=== PATIENT | female | born 1935 | race Caucasian/White ===

== ENCOUNTER → 2020-03-08 13:32 | Outpatient (CLI) | payer OTHER, SELFPAY | PROVIDERS: Family Provider Internal Medicine; PCP Internal Medicine; Referring Provider Internal Medicine; Visit Provider Internal Medicine | DX: M85.851 Other specified disorders of bone density and structure, right thigh (principal); Z78.0 Asymptomatic menopausal state; Z85.3 Personal history of malignant neoplasm of breast | CPT/HCPCS: 77080 ==

== ENCOUNTER → 2020-04-26 10:26 | Outpatient (CLI) | payer OTHER, SELFPAY ==
--- NOTE | 2020-04-26 | DI.MG.S_ITS ---
BILATERAL DIGITAL SCREENING MAMMOGRAM 3D/2D WITH CAD: 04/26/2020 CLINICAL: Routine screening. Comparison is made to exams dated: 02/04/2019 mammogram, 09/25/2018 mammogram, and 07/30/2017 mammogram - outside location. The tissue of both breasts is predominantly fatty. Current study was also evaluated with a Computer Aided Detection (CAD) system. No significant masses, calcifications, or other findings are seen in either breast. There has been no significant interval change. IMPRESSION: NEGATIVE There is no mammographic evidence of malignancy. A 1 year screening mammogram is recommended. This exam was interpreted at Station ID: [id number]. NOTE: For mammograms, a report in lay terms will be sent to the patient. Approximately 15% of breast malignancies will not be visualized mammographically. In the management of a palpable breast mass, a negative mammogram must not discourage biopsy of a clinically suspicious lesion. Electronically Signed By: Rigo Lugo M.D., jr/fortino:04/26/2020 11:30:06 letter sent: Normal Exam ACR BI-RADS Category 1: Negative 3341F
== END ==
PROVIDERS: Family Provider Internal Medicine; PCP Internal Medicine; Referring Provider Internal Medicine; Visit Provider Internal Medicine
DX: Z12.31 Encounter for screening mammogram for malignant neoplasm of breast (principal)
CPT/HCPCS: 77063; 77067

== ENCOUNTER → 2020-06-28 15:41 | Outpatient (CLI) | payer OTHER, SELFPAY ==
--- NOTE | 2020-06-28 | DI.RAD.S_ITS ---
PROCEDURE: XR LUMBAR SPINE 2-3V INDICATIONS: back pain TECHNIQUE: 3 views of the lumbar spine were acquired. COMPARISON: None. FINDINGS: Bones: No definite fracture although evaluation limited by scoliosis. Severe levoscoliosis and facet arthropathy. Severe narrowing of the T12-L1, L1-L2, L2-L3 disc spaces. Grade 1 retrolisthesis of L2 on L3. Multilevel degenerative endplate sclerosis and spurring. Diffuse facet arthropathy. Soft tissues: Overlying bowel gas pattern is normal. No suspicious soft tissue calcifications. IMPRESSION: Severe levoscoliosis . Multilevel lumbar spondylosis, and facet arthropathy Dictated by: Jeancarlos Silva M.D. on 06/28/2020 at 16:57 Approved by: Jeancarlos Silva M.D. on 06/28/2020 at 16:59
== END ==
PROVIDERS: Family Provider Internal Medicine; PCP Internal Medicine; Referring Provider Internal Medicine; Visit Provider Student in an Organized Health Care Education/Training Program
DX: M54.5 Low back pain (principal); M47.816 Spondylosis without myelopathy or radiculopathy, lumbar region; M41.86 Other forms of scoliosis, lumbar region
CPT/HCPCS: 72100

== ENCOUNTER → 2020-11-03 09:52 | Outpatient (CLI) | payer OTHER, SELFPAY ==
--- NOTE | 2020-11-03 | DI.RAD.S_ITS ---
PROCEDURE: FL UPPER GI SERIES INDICATIONS: lower abdominal pain, unspecified COMPARISON: None. FINDINGS: KUB: Preprocedural [employer] film demonstrates a normal bowel gas pattern. No suspicious abdominal calcifications. Visualized solid organ contours appear normal. Bony structures appear unremarkable. Esophagus: There is normal esophageal peristalsis. No strictures, extrinsic mass effects, or diverticula. No elicited gastroesophageal reflux. No hiatal hernia. Stomach: Stomach is normally distensible, without extrinsic mass effects. Pylorus and duodenal bulb demonstrate normal single-contrast morphology. There is ready transit of contrast through the gastric outlet into the small bowel. IMPRESSION: No evidence of mass or ulceration, normal visualized proximal small bowel. No reflux was observed, esophageal motility is normal. Overall, source of reported episode of epigastric pain is not seen. Dictated by: Asher Meeks M.D. on 11/03/2020 at 12:34 Approved by: Asher Meeks M.D. on 11/03/2020 at 12:35
--- NOTE | 2020-11-03 | DI.US.S_ITS ---
PROCEDURE: US ABDOMEN COMPLETE INDICATIONS: PAIN TECHNIQUE: Real-time scanning was performed of the abdominal and retroperitoneal organs, with image documentation. COMPARISON: None. FINDINGS: Liver: Liver is normal in size and homogeneous in echotexture. Gallbladder: No findings of gallstones or sludge are seen. The gallbladder wall is not thickened, measuring 3 mm or less. No specific pericholecystic fluid is seen. The sonographic Stone sign is negative. Biliary ducts: Intrahepatic bile ducts are non-dilated. Extrahepatic bile duct caliber measures 7 mm. Normal is 6-7 mm or less in diameter, or 10 mm or less post-cholecystectomy. Pancreas: Visualized portions of the pancreas are sonographically normal. Spleen: Spleen is normal in size and homogeneous in echotexture. Kidneys: Kidneys are normal in size and echotexture. Right kidney measures 8 cm long; left kidney measures 9.4 cm long. No hydronephrosis or nephrolithiasis. No solid masses. Aorta: Visualized aorta is normal in caliber at less than 3 cm. Iliacs: Proximal common iliac arteries are normal in caliber at less than 2.5 cm. IVC: Intrahepatic inferior vena cava is patent. Miscellaneous: No free abdominal fluid. IMPRESSION: Normal ultrasound. The gallbladder demonstrates a normal sonographic appearance. No biliary dilatation is seen. No hydronephrosis is seen. Dictated by: Adolfo Zacarias M.D. on 11/03/2020 at 12:11 Approved by: Adolfo Zacarias M.D. on 11/03/2020 at 12:12
== END ==
PROVIDERS: Family Provider Internal Medicine; PCP Internal Medicine; Referring Provider Internal Medicine; Visit Provider Internal Medicine
DX: R10.30 Lower abdominal pain, unspecified (principal)
CPT/HCPCS: 74240; 76700

== ENCOUNTER → 2021-01-15 13:59 | Outpatient (CLI) | payer OTHER, SELFPAY ==
--- NOTE | 2021-01-15 14:07 | DI.RAD.S_ITS ---
PROCEDURE: XR ELBOW RT MIN 3V INDICATIONS: RT ELBOW PAIN TECHNIQUE: 3 views of the elbow were acquired. COMPARISON: None. FINDINGS: Bones: No fractures or dislocations. No suspicious bony lesions. Soft tissues: No elbow joint effusion. No suspicious soft tissue calcifications. IMPRESSION: No trauma found. Dictated by: Asher Meeks M.D. on 01/15/2021 at 14:49 Approved by: Asher Meeks M.D. on 01/15/2021 at 14:49
== END ==
PROVIDERS: Family Provider Internal Medicine; PCP Internal Medicine; Referring Provider Internal Medicine; Visit Provider Internal Medicine
DX: M25.521 Pain in right elbow (principal)
CPT/HCPCS: 73080

== ENCOUNTER 2021-02-09 02:39 | Emergency (ER) | payer OTHER, SELFPAY ==
[2021-02-09 02:42] VITALS: BP 222/98; PULSE 72; RESP 18; TEMP 36.4; O2SAT 99; BMI 26.4
[2021-02-09 03:07] LABS: Add Manual Diff / Slide Review NO; Basophils Absolute Auto 100 /uL (0-100); Basophils Percent Auto 1.3 % (0-2); Eosinophils Absolute Auto 200 /uL (0-450); Hematocrit 37.5 % (36-46); Hemoglobin 12.7 g/dL (12.0-16.0); Lymphocytes Absolute Auto 800 /uL (1100-4500); Lymphocytes Percent Auto 16.2 % (25-40); Mean Corpuscular HGB Conc 33.9 % (30-36); Mean Corpuscular Hemoglobin 32.7 PG (26-34); Mean Corpuscular Volume 96.4 fL (80-100); Monocytes Absolute Auto 500 /uL (0-900); Monocytes Percent Auto 9.3 % (3-14); Neutrophils Absolute Auto 3500 /uL (1500-7000); Neutrophils Percent Auto 69.2 % (50-75); Platelet Count 158 X10^3/uL (150-400); Red Blood Cell Count 3.89 X10^6/uL (4.0-5.2); Red Cell Distribution Width 13.7 % (11.6-14.8); White Blood Cell Count 5.1 X10^3/uL (4.5-11.0)
[2021-02-09 03:10] LABS: Prothrombin Time 11.3 SECONDS (10.1-12.7)
[2021-02-09 03:12] LABS: PTT Partial Thromboplastin Tim 29 SECONDS (26.4-36.2)
[2021-02-09 03:14] LABS: Alanine Aminotransferase 6 IU/L (<35); Albumin 4.2 g/dL (3.5-5.0); Albumin Globulin Ratio 1.4 (1.0-2.8); Alkaline Phosphatase 46 U/L (38-126); Aspartate Aminotransferase 26 IU/L (14-36); BUN Creatinine Ratio 29.3 (6-22); Bilirubin Total 0.6 mg/dL (0.2-1.3); Blood Urea Nitrogen 22 mg/dL (7-17); Calcium 8.4 mg/dL (8.4-10.2); Carbon Dioxide 25 mmol/L (22-32); Chloride 95 mmol/L (98-107); Estimated Glomerular Filt Rate > 60.0 mL/min (>60); Glucose 102 mg/dL (80-110); HEMOLYSIS < 15 (0-50); Lipase 93 U/L (23-300); Potassium 4.1 mmol/L (3.4-5.1); Sodium 134 mmol/L (137-145); Total Protein 7.2 g/dL (6.3-8.2)
--- NOTE | 2021-02-09 03:43 | ED_ITS ---
HPI - Abdominal Pain General Chief Complaint: Abdominal Pain Stated Complaint: pain in left side Time Seen by Provider: 02/09/21 03:15 Source: patient Mode of arrival: Ambulatory Limitations: no limitations History of Present Illness HPI narrative: 85-year-old woman with a history of Parkinson's disease and hyperlipidemia presents with 3 days of left-sided abdominal pain that waxes and wanes. She saw her primary physician yesterday and blood work as well as imaging study and an upper GI were ordered but are not scheduled to be done for almost a week. This evening while lying flat in bed she had recurrent pain in her abdomen severe enough that she could not sleep so she comes in for further evaluation. She notes that she had a normal bowel movement yesterday morning and for the last year to 2 she has noted that she has had increased constipation and larger size stools that take a ?bit of work? to get out. She denies fevers, vomiting, rashes, dyspnea or orthopnea. The pain does not seem to be related to eating or movement. She has been passing gas. Related Data Home Medications Medication Instructions Recorded Confirmed Diphenhydramine Hydrochloride 25 OR #0 10/17/10 (Benadryl) Simvastatin (Zocor) 40 mg PO HS #0 10/17/10 carbidopa-levodopa [Sinemet CR] 1 tab PO BID #0 01/28/17 Previous Rx's Medication Instructions Recorded docusate sodium [Colace] 100 mg PO BID #20 cap 12/28/17 hydrocodone-acetaminophen [Lincoln] 1 tab PO Q4HP PRN #15 tab 12/28/17 Allergies Allergy/AdvReac Type Severity Reaction Status Date / Time cortisone [CORTISONE] Allergy Unknown NAUSEA, Unverified 01/07/18 12:16 PASSED OUT/THINKS IT WAS FROM THE PAIN OF AN INJECTI FLU VACCINE Allergy Unknown TOLD NOT Uncoded 01/07/18 12:16 TO GET THE FLU/PNEUMONIA VACCINE PNEUMOMIA VACCINE Allergy Unknown TOLD NOT Uncoded 01/07/18 12:16 TO GET PNEUMONIA OR FLU VACCINES Review of Systems Review of Systems Narrative: Remainder of complete review of systems is otherwise unremarkable except for that included in the HPI. Patient History Medical History Hyperlipidemia Parkinsons disease Exam Narrative Exam Narrative: General: Healthy appearing, in no acute distress. Able to give a complete and coherent history. Well-nourished well-developed HEENT: Moist mucous membranes, normal sclera with reactive pupils, Neck: No JVD, supple Respiratory: Lungs are clear to auscultation, no wheezing no rales no rhonchi. Full and symmetrical air movement Cardiac: Regular rate and rhythm no murmurs no bruits Abdomen: Soft, nontender at this time, good bowel tones, no flank pain Skin: Warm and dry, no rashes Neurologic: Grossly neurologically intact with no obvious asymmetries or a bnormalities Extremities: No trauma, well perfused Psych: Cooperative, appropriate insight and affect Initial Vital Signs Initial Vital Signs: Vital Signs Temperature 97.5 F L 02/09/21 02:42 Pulse Rate 72 02/09/21 02:42 Respiratory Rate 18 02/09/21 02:42 Blood Pressure 222/98 H 02/09/21 02:42 Pulse Oximetry 99 02/09/21 02:42 Course Orders Ordered: ED Orders 02/09/21 03:00 Complete Blood Count AUTO DIFF Stat Comprehensive Metabolic Panel Stat Lipase Stat Partial Thromboplastin Time Stat Prothrombin Time INR Stat EKG-12 Lead Stat 02/09/21 03:51 CT abdomen pelvis w con Stat Vital Signs Vital signs: Vital Signs - 8 hr 02/09/21 02:42 02/09/21 04:19 02/09/21 04:20 Temperature 97.5 F L Pulse Rate 72 71 71 Respiratory Rate 18 Blood Pressure 222/98 H 222/99 H Pulse Oximetry 99 92 96 02/09/21 04:22 02/09/21 04:23 Temperature Pulse Rate 69 69 Respiratory Rate Blood Pressure 214/96 H 196/88 H Pulse Oximetry 96 96 MDM - Abdominal Pain Medical Records Attestation: I reviewed the patient's medical records. Lab Data Attestation: I reviewed the patient's lab results. Result diagrams: 02/09/21 03:00 02/09/21 03:00 Labs: Lab Results 02/09/21 02/09/21 02/09/21 Range/Units 03:00 03:00 03:00 WBC 5.1 (4.5-11.0) X10^3/uL RBC 3.89 L (4.0-5.2) X10^6/uL Hgb 12.7 (12.0-16.0) g/dL Hct 37.5 (36-46) % MCV 96.4 (80-100) fL MCH 32.7 (26-34) PG MCHC 33.9 (30-36) % RDW 13.7 (11.6-14.8) % Plt Count 158 (150-400) X10^3/uL Neut % (Auto) 69.2 (50-75) % Lymph % (Auto) 16.2 L (25-40) % [place] % (Auto) 9.3 (3-14) % Eos % (Auto) 4.0 (2-4) % Baso % (Auto) 1.3 (0-2) % Neut # (Auto) 3500 (8700-9167) /uL Lymph # (Auto) 800 L (9155-8844) /uL [place] # (Auto) 500 (0-900) /uL Eos # (Auto) 200 (0-450) /uL Baso # (Auto) 100 (0-100) /uL PT 11.3 (10.1-12.7) SECONDS INR 1.0 (0.9-1.3) APTT 29 (26.4-36.2) SECONDS Sodium 134 L (137-145) mmol/L Potassium 4.1 (3.4-5.1) mmol/L Chloride 95 L (98-107) mmol/L Carbon Dioxide 25 (22-32) mmol/L BUN 22 H (7-17) mg/dL Creatinine 0.75 (0.52-1.04) mg/dL Estimated GFR > 60.0 (>60) mL/min BUN/Creatinine Ratio 29.3 H (6-22) Glucose 102 (80-110) mg/dL Calcium 8.4 (8.4-10.2) mg/dL Total Bilirubin 0.6 (0.2-1.3) mg/dL AST 26 (14-36) IU/L ALT 6 (<35) IU/L Alkaline Phosphatase 46 (38-126) U/L Total Protein 7.2 (6.3-8.2) g/dL Albumin 4.2 (3.5-5.0) g/dL Globulin 3.0 (1.7-4.1) g/dL Albumin/Globulin Ratio 1.4 (1.0-2.8) Lipase 93 (23-300) U/L Imaging Data CT scan - abdomen/pelvis: Radiologist's Impression: No evidence of colitis, diverticulitis, bowel obstruction, obstructive uropathy or acute appendicitis. Stefanie Coburn MD [facility] Narrative Medical decision making narrative: 85-year-old woman with recurrent intermittent episodes of left-sided abdominal pain. Lab work is unremarkable, CT scan is reassuring Alesha normal. No evidence of masses, obstruction, diverticulitis, renal abnormalities. Unexplained abdominal pain at this point but no life- threatening findings and no reason for hospitalization. Will have her continue with outpatient follow-up as previously scheduled. Discharge Plan Departure Patient Disposition: Home Clinical Impression: Abdominal pain Qualifiers: Abdominal location: unspecified location Qualified Code(s): R10.9 - Unspecified abdominal pain Instructions: DI for Abdominal Pain-Adult Activity Restrictions/Additional Instructions: Thank you for coming in today At this time, your blood work is very reassuring. There is no sign of electrolyte abnormalities, heart attack or heart attack like syndrome, infection. The CT scan of your abdomen did not show any life-threatening abnorm alities. Specifically there is no masses, tumors, diverticulitis or infection. I have not been able to identify a life-threatening explanation for the pain that you are experiencing. At this point I believe it is safe for you to go home continue with outpatient workup as recommended by your primary care physician. If a CT scan of the abdomen was part of the recommended workup, that was done today and will not need to be repeated. Please schedule follow-up with your primary care physician. If you find that things are worse or changing it would be appropriate to return to the emergency department for further evaluation Prescriptions: No Action Simvastatin (Zocor) 40 mg PO HS Qty: 0 RF: 0 Diphenhydramine Hydrochloride (Benadryl) 25 OR Qty: 0 RF: 0 carbidopa-levodopa [Sinemet CR] 25 MG/100 MG tablet extended release 1 tab PO BID Qty: 0 RF: 0 hydrocodone-acetaminophen [Lincoln] 5 MG/325 MG tablet 1 tab PO Q4HP PRNQty: 15 RF: 0 docusate sodium [Colace] 100 MG capsule 100 mg PO BID Qty: 20 RF: 0 Referrals: Nataliia Garcia MD [Primary Care Provider] -
--- NOTE | 2021-02-09 03:51 | DI.CT.S_ITS ---
PROCEDURE: CT ABDOMEN PELVIS W CON INDICATIONS: Left side abdominal pain for 3 days TECHNIQUE: After the administration of intravenous contrast, 5 mm thick sections acquired from the diaphragm to the symphysis. 5 mm coronal and sagittal reformats were acquired. For radiation dose reduction, the following was used: automated exposure control, adjustment of mA and/or kV according to patient size. COMPARISON: None. FINDINGS: Image quality: Excellent. ABDOMEN: Lung bases: Lung bases are clear. Heart size is normal. There is a fat containing small posterior right diaphragm herniation extending cephalad into the posterior right hemithorax. Solid organs: Liver is normal in size and enhancement. Gallbladder appears normal. Biliary system is non dilated. Pancreas enhances normally. Spleen is normal in size and enhancement. There is a right-sided 1.9 cm adrenal nodule and mild adrenal hyperplasia on the left.. Kidneys demonstrate normal size and enhancement, without hydronephrosis. Peritoneum and bowel: Bowel loops demonstrate normal wall thickness and caliber. No free fluid or air. Nodes and vessels: No retroperitoneal or mesenteric adenopathy by size criteria. Aorta and inferior vena cava are normal in size. Miscellaneous: No ventral hernias. PELVIS: Genitourinary: Bladder wall thickness is normal. Miscellaneous: No inguinal hernias or adenopathy. Bones: No suspicious bony lesions. No vertebral body compression fractures. IMPRESSION: A definite source of reported left-sided abdominal pain is not identified. There is a 1.9 cm right adrenal nodule, and mild left adrenal hyperplasia. MR scanning could be utilized, without contrast, with adrenal nodule protocol to assess for adrenal adenoma as the underlying cause on the right. No specific follow-up of the left adrenal appearance is recommended. Note: These findings are concordant with the preliminary interpretation. Dictated by: Asher Meeks M.D. on 02/09/2021 at 8:45 Approved by: Asher Meeks M.D. on 02/09/2021 at 8:51
[2021-02-09 04:19] VITALS: PULSE 71; O2SAT 92
[2021-02-09 04:20] VITALS: BP 222/99; PULSE 71; O2SAT 96
[2021-02-09 04:22] VITALS: BP 214/96; PULSE 69; O2SAT 96
[2021-02-09 04:23] VITALS: BP 196/88; PULSE 69; O2SAT 96
[2021-02-09 04:30] VITALS: BP 190/89; PULSE 69; RESP 16; O2SAT 98
== END 2021-02-09 05:10 | disposition home or self-care (01) ==
PROVIDERS: Emergency Provider Emergency Medicine; Family Provider Internal Medicine; PCP Internal Medicine
DX: R10.9 Unspecified abdominal pain (principal)
CPT/HCPCS: 36415; 74177; 80053; 83690; 85025; 85610; 85730; 99284; Q9967

== ENCOUNTER → 2021-02-22 19:16 | Outpatient (CLI) | payer OTHER, SELFPAY ==
--- NOTE | 2021-02-22 | DI.MRI.S_ITS ---
PROCEDURE: MR ABDOMEN WO CON INDICATIONS: Benign neoplasm of unspecified adrenal gland TECHNIQUE: Coronal HASTE, axial 2-D FLASH in- and [id number] with subtractions from the hepatic dome to the iliac crests. COMPARISON: [facility], CT, THORAX WITHOUT CONTRAST, 05/23/2014, 13:20. [facility], CT, CT ABDOMEN PELVIS W CON, 02/09/2021, 4:05. FINDINGS: Image quality: Excellent. Adrenal glands: Normal on the left. A 1.9 cm maximal dimension ovoid focal adrenal nodule on the right shows uniform low signal on [id number] gradient T1 imaging open (series 4, image 12) as expected for benign adrenal adenoma. Other solid organs: Liver is normal in overall size. Gallbladder is not well seen. Biliary system is non dilated. Pancreas is normal in morphology. Spleen is normal in size. Both kidneys are normal in size, without hydronephrosis. Note is again made of a chronic small fat containing posterior right diaphragmatic herniation. This was well visualized on prior CT scanning including in April of 2014. Nodes and vessels: No retroperitoneal or mesenteric adenopathy by size criteria. Aorta and inferior vena cava are normal in size. Bowel and peritoneum: Unenhanced bowel loops are normal in caliber. No free fluid. Lung bases: No basal pleural effusions. Heart size is normal. Bones and soft tissues: No ventral hernias. Bone marrow is of normal overall signal. 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 No follow-up recommended. 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 Dictated by: Asher Meeks M.D. on 02/23/2021 at 11:01 Approved by: Asher Meeks M.D. on 02/23/2021 at 11:07
== END ==
PROVIDERS: Family Provider Internal Medicine; PCP Internal Medicine; Referring Provider Internal Medicine; Visit Provider Internal Medicine
DX: D35.01 Benign neoplasm of right adrenal gland (principal); K44.9 Diaphragmatic hernia without obstruction or gangrene
CPT/HCPCS: 74181

== ENCOUNTER → 2021-05-02 10:31 | Outpatient (CLI) | payer OTHER, SELFPAY ==
--- NOTE | 2021-05-02 | DI.MG.S_ITS ---
BILATERAL DIGITAL SCREENING MAMMOGRAM 3D/2D WITH CAD POST LUMPECTOMY: 05/02/2021 CLINICAL: Routine screening. Breast cancer. Comparison is made to exams dated: 04/26/2020 mammogram - [facility], 02/04/2019 mammogram, and 09/25/2018 mammogram - outside location. The tissue of both breasts is heterogeneously dense. This may lower the sensitivity of mammography. Current study was also evaluated with a Computer Aided Detection (CAD) system. There are calcifications in both breasts. There also are post operative findings in the right breast. No significant masses, calcifications, or other findings are seen in either breast. There has been no significant interval change. IMPRESSION: BENIGN There is no mammographic evidence of malignancy. A 1 year screening mammogram is recommended. This exam was interpreted at Station ID: [id number]. NOTE: For mammograms, a report in lay terms will be sent to the patient. Approximately 15% of breast malignancies will not be visualized mammographically. In the management of a palpable breast mass, a negative mammogram must not discourage biopsy of a clinically suspicious lesion. Electronically Signed By: Jovanny Crespo M.D. aty/:05/02/2021 11:45:39 letter sent: Normal Exam ACR BI-RADS Category 2: Benign Finding(s) 3342F
== END ==
PROVIDERS: Family Provider Internal Medicine; PCP Internal Medicine; Referring Provider Internal Medicine; Visit Provider Internal Medicine
DX: Z12.31 Encounter for screening mammogram for malignant neoplasm of breast (principal); Z85.3 Personal history of malignant neoplasm of breast
CPT/HCPCS: 77063; 77067

== ENCOUNTER → 2021-08-21 13:33 | Outpatient (CLI) | payer OTHER, SELFPAY ==
--- NOTE | 2021-08-21 13:35 | DI.MRI.S_ITS ---
PROCEDURE: MR PELVIS WO CON INDICATIONS: RIGHT ISCHIAL PAIN, INTRACTABLE TECHNIQUE: Noncontrast coronal and axial T1 spin echo and STIR through the bony pelvis. COMPARISON: [facility] [place], CR, XR PELVIS WITH LATERAL HIP RIGHT, 08/02/2021, 14:29. FINDINGS: Image quality: Excellent. Bones: Bone marrow of the pelvic ring, sacrum, and proximal femurs show normal signal throughout. No intraosseous lesions or fractures identified. Lower lumbar spondylosis and facet disease. Mild bilateral hip joint degeneration. Tendons: There is mild bilateral insertional gluteus medius and minimus tendinopathy with adjacent soft tissue edema. The nearby proximal iliotibial band appears intact. The iliopsoas tendon appears intact, without adjacent bursal fluid collections or evidence for impingement syndrome. On the right, there is partial tear of the right hamstring origin with associated edema T2 hyperintensity. There is similar appearance to the left hamstring origin to a lesser extent. The straight and reflected heads of the rectus femoris muscle origin appear intact, as well as the conjoint tendon. Soft tissues: Visualized muscles demonstrate normal bulk and internal signal. No joint effusions. No free pelvic fluid. Bladder wall thickness is normal. Genitourinary structures and bowel loops appear normal where visualized. There is a possible right paralabral cyst measuring approximately 1 cm. This could be further assess for labral tear with dedicated hip arthrography. IMPRESSION: Partial tear at the right hamstring origin with associated soft tissue edema. There are similar changes seen at the left hamstring origin to a lesser extent. Please correlate to clinical exam findings as this appearance is technically age indeterminate. Mild bilateral insertional hip adductor tendinopathy. No evidence of fracture. Prominent paralabral cyst adjacent to the right acetabulum. This could reflect right labral tear which could be better assessed with dedicated MR arthrography as clinically necessary. Dictated by: Jeancarlos Silva M.D. on 08/21/2021 at 16:51 Approved by: Jeancarlos Silva M.D. on 08/21/2021 at 17:24
== END ==
PROVIDERS: Family Provider Internal Medicine; PCP Internal Medicine; Referring Provider Orthopaedic Surgery Foot and Ankle Surgery; Visit Provider Orthopaedic Surgery Foot and Ankle Surgery
DX: M24.851 Other specific joint derangements of right hip, not elsewhere classified (principal); S76.811A Strain of other specified muscles, fascia and tendons at thigh level, right thigh, initial encounter; M25.551 Pain in right hip
CPT/HCPCS: 72195

== ENCOUNTER → 2022-07-12 13:25 | Outpatient (CLI) | payer OTHER, SELFPAY ==
--- NOTE | 2022-07-12 | DI.MG.S_ITS ---
BILATERAL DIGITAL SCREENING MAMMOGRAM 3D/2D WITH CAD: 07/12/2022 CLINICAL: Routine screening. Personal history of right breast cancer. Comparison is made to exams dated: 05/02/2021 mammogram, 04/26/2020 mammogram - [facility], and 02/04/2019 mammogram - outside location. Both breasts are heterogeneously dense, which may obscure small masses (category c / 51-75% glandular tissue). Current study was also evaluated with a Computer Aided Detection (CAD) system. There are benign vascular calcifications in both breasts. There also are benign post operative findings in the right breast. No significant masses, calcifications, or other findings are seen in either breast. There has been no significant interval change. IMPRESSION: BENIGN There is no mammographic evidence of malignancy. A 1 year screening mammogram is recommended. This exam was interpreted at Station ID: [id number]. NOTE: For mammograms, a report in lay terms will be sent to the patient. Approximately 15% of breast malignancies will not be visualized mammographically. In the management of a palpable breast mass, a negative mammogram must not discourage biopsy of a clinically suspicious lesion. Electronically Signed By: Lorena bray/fortino:07/12/2022 16:49:57 letter sent: Normal Exam ACR BI-RADS Category 2: Benign Finding(s) 3342F
== END ==
PROVIDERS: Family Provider Internal Medicine; PCP Internal Medicine; Referring Provider Internal Medicine; Visit Provider Internal Medicine
DX: Z12.31 Encounter for screening mammogram for malignant neoplasm of breast (principal); Z85.3 Personal history of malignant neoplasm of breast
CPT/HCPCS: 77063; 77067

== ENCOUNTER 2022-10-06 07:53 | Emergency (ER) | payer OTHER, SELFPAY ==
[2022-10-06] VITALS (8 sets, daily range): BP systolic 182–210; BP diastolic 70–95; PULSE 67–78; RESP 17–20; TEMP 36.5; O2SAT 69–98; BMI 25.7
--- NOTE | 2022-10-06 08:26 | DI.CT.S_ITS ---
PROCEDURE: CT CHEST ABD PEL W CON INDICATIONS: fall, L flank/post rib pain with near syncope on standing, TECHNIQUE: After the administration of intravenous contrast, 5 mm thick sections acquired from the lung apices to the symphysis. 2.5 mm thick coronal and sagittal reformats were acquired. Additional 7 mm thick coronal maximum intensity projection (MIP) reformats acquired through the lungs. For radiation dose reduction, the following was used: automated exposure control, adjustment of mA and/or kV according to patient size. COMPARISON: None. FINDINGS: Chest: Cardiovascular: Heart size is enlarged. Dense calcification associated with the aortic valve noted. Ascending thoracic aorta measures 4.4 cm in diameter. Atherosclerotic vascular calcification Lungs and pleural spaces: Left basilar interstitial atelectasis and infiltrate noted. Small calcified granulomas. Lymph nodes: No mediastinal, hilar or axillary adenopathy. Mediastinum: Unremarkable. No hiatal hernia. Thyroid within normal limits. Chest Wall and Bones: Old healed rib fractures noted involving the anterior left 3rd and 4th ribs. There is a fracture through the posterior 12th rib on the left, uncertain age no surrounding edema. Large posterior osteophyte or calcified ligament at T6-7 results in severe central stenosis. Multiple surgical clips noted in the right axilla. Soft tissue calcification associated with the tip of the left scapula noted. Convex left thoracolumbar scoliosis with degenerative changes present. Bilateral glenohumeral degenerative osteoarthritis Abdomen and Pelvis: Liver: Normal in size and attenuation. No contour deformity present. Biliary system: No calcified cholelithiasis or pericholecystic inflammation. No intra or extrahepatic bile duct dilatation. Pancreas: Unremarkable without mass or inflammation evident. Spleen: Normal in size and density. Adrenals: Bilateral adrenal hypertrophy noted Reproductive system: Unremarkable as visualized. Urinary system: Normal renal size and attenuation. No renal calculi, hydronephrosis, or solid mass present. Urinary bladder unremarkable. Gastrointestinal system: The bowel is unremarkable with no evidence of bowel obstruction or inflammation. The stomach appears unremarkable. Appendix: No findings to suggest acute appendicitis. Lymph nodes: No mesenteric or retroperitoneal adenopathy. Peritoneal spaces: No free air. No free fluid. Vasculature: Aortic atherosclerotic vascular calcification noted without evidence of aneurysm. Abdominal wall: Abdominal wall intact without evidence of ventral or inguinal hernias. Musculoskeletal: Normal bone mineralization. Degenerative disc disease and arthropathy noted in lower lumbar spine. No acute fractures. IMPRESSION: 1. Old healed anterior left 3rd and 4th rib fractures. Posterior left 12th rib fracture, uncertain age. No evidence of pneumothorax. 2. Multilevel degenerative disc disease and arthropathy throughout the thoracolumbar spine associated with levoscoliosis. 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 3. Cardiomegaly, aortic atherosclerotic calcification, and ascending thoracic aortic aneurysm measures 4.4 cm. Approved by: Ashu Barajas M.D. on 10/06/2022 at 10:00
--- NOTE | 2022-10-06 08:26 | DI.CT.S_ITS ---
PROCEDURE: CT CERVICAL SPINE WO CON INDICATIONS: fall TECHNIQUE: Noncontrast 3 mm thick sections acquired from the skull base to the T4 level. Sagittal and coronal reformats were then constructed. For radiation dose reduction, the following was used: automated exposure control, adjustment of mA and/or kV according to patient size. COMPARISON: None. FINDINGS: Image quality: Excellent. Bones: Disc space narrowing noted in the lower lumbar spine. Hypertrophic facet joints present throughout the exam resulting in grade 1 anterior spondylolisthesis at C 4 5, C5-6 T1-2 and T2-3. Vertebral body heights are preserved. Craniovertebral relationships normal. No fracture. Soft tissues: Prevertebral soft tissues are normal in thickness. No paravertebral hematomas. No apical pneumothoraces. IMPRESSION: Multilevel degenerative disc disease and arthropathy without evidence of fracture or traumatic malalignment Approved by: Ashu Barajas M.D. on 10/06/2022 at 9:46
--- NOTE | 2022-10-06 08:26 | DI.RAD.S_ITS ---
PROCEDURE: XR KNEE LT 3V INDICATIONS: fell, knee gave out TECHNIQUE: 3 views of the knee were acquired. COMPARISON: None. FINDINGS: Bones: No fractures or dislocations. No suspicious bony lesions. Medial compartment joint space narrowing Soft tissues: No joint effusion. Atherosclerotic vascular calcification IMPRESSION: Degenerative osteoarthritis. No fracture Approved by: Ashu Barajas M.D. on 10/06/2022 at 10:28
--- NOTE | 2022-10-06 08:26 | DI.CT.S_ITS ---
PROCEDURE: CT ANGIO HEAD AND NECK INDICATIONS: left leg gave out, fall, hit head TECHNIQUE: Pre-contrast 4.5 mm thick sections acquired from the foramen magnum to the vertex. After the administration of intravenous contrast, 1 mm thick sections acquired from the aortic arch through the [place] of [place]. Post-contrast 4.5 mm thick sections then re-acquired from the foramen magnum to the vertex. MIP reformats of the arterial vasculature were utilized. For radiation dose reduction, the following was used: automated exposure control, adjustment of mA and/or kV according to patient size. COMPARISON: None. FINDINGS: Image quality: Excellent. BRAIN: CSF spaces: Ventricles are normal in size and shape. Basal cisterns are patent. No extra-axial fluid collections. Brain: No midline shift. No intracranial bleeds or masses. [place]-white matter interface appears intact. Moderate atrophy and confluent white matter chronic ischemic change present. Skull and face: Calvarium and facial bones appear intact, without suspicious lesions. Orbits appear normal. Bilateral intraocular lens replacements noted. Sinuses: Sinuses and mastoids are clear. HEAD CT ANGIOGRAPHY: Anterior circulation: Atherosclerotic calcification present in the cavernous portions of both internal carotid arteries without significant stenosis. The flow within the paired anterior cerebral arteries is normal and symmetric. The flow within the middle cerebral arteries is normal and symmetric. The anterior communicating artery is seen. No aneurysms are seen. Posterior circulation: Left vertebral artery dominance. Diminutive right vertebral artery terminates in the posterior inferior cerebellar artery. 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 The P2 segment is supplied by a widely patent posterior communicating artery. Remainder of the distal vasculature unremarkable. No aneurysms are seen. NECK CT ANGIOGRAPHY: Carotid system: The great vessels demonstrate a conventional anatomy as they arise from the aortic arch. The origins of the common carotid arteries appear patent. The common carotid arteries demonstrate normal caliber and courses. The bifurcation regions are both widely patent. The internal carotid arteries demonstrate normal calibers and courses. Posterior circulation: The origins of the vertebral arteries both appear widely patent. The more superior extracranial portions of both vertebral arteries also demonstrate normal courses and calibers. They join to form a normal appearing basilar artery. Soft tissues: Visualized neck soft tissues demonstrate no suspicious abnormalities. Bones: No suspicious bony lesions. Visualized cervical spine appears normally aligned. IMPRESSION: 1. Mild atherosclerotic calcification without evidence of large vessel occlusion, significant stenosis, or aneurysm in the head neck. 2. Moderate atrophy and confluent white matter chronic ischemic change. No intracranial hemorrhage or mass effect. Any quantitative measurements of stenosis were performed using NASCET criteria. Approved by: Ashu Barajas M.D. on 10/06/2022 at 9:41
[2022-10-06 08:35] LABS: Add Manual Diff / Slide Review NO; Basophils Absolute Auto 100 /uL (0-100); Basophils Percent Auto 1.1 % (0-2); Eosinophils Absolute Auto 100 /uL (0-450); Eosinophils Percent Auto 1.1 % (2-4); Hematocrit 41.3 % (36-46); Hemoglobin 13.7 g/dL (12.0-16.0); Lymphocytes Absolute Auto 600 /uL (1100-4500); Lymphocytes Percent Auto 10.4 % (25-40); Mean Corpuscular HGB Conc 33.1 % (30-36); Mean Corpuscular Hemoglobin 32.2 PG (26-34); Mean Corpuscular Volume 97.3 fL (80-100); Monocytes Absolute Auto 500 /uL (0-900); Monocytes Percent Auto 8.9 % (3-14); Neutrophils Absolute Auto 4600 /uL (1500-7000); Neutrophils Percent Auto 78.5 % (50-75); Platelet Count 194 X10^3/uL (150-400); Red Blood Cell Count 4.24 X10^6/uL (4.0-5.2); Red Cell Distribution Width 13.5 % (11.6-14.8); White Blood Cell Count 5.8 X10^3/uL (4.5-11.0)
[2022-10-06 08:41] LABS: Alanine Aminotransferase 19 IU/L (<35); Albumin 4.4 g/dL (3.5-5.0); Albumin Globulin Ratio 1.2 (1.0-2.8); Alkaline Phosphatase 65 U/L (38-126); Aspartate Aminotransferase 26 IU/L (14-36); BUN Creatinine Ratio 22.6 (6-22); Blood Urea Nitrogen 19 mg/dL (7-17); Calcium 9.3 mg/dL (8.4-10.2); Carbon Dioxide 28 mmol/L (22-32); Chloride 98 mmol/L (98-107); Estimated Glomerular Filt Rate > 60 mL/min (>60); Globulin 3.7 g/dL (1.7-4.1); Glucose 112 mg/dL (80-110); HEMOLYSIS < 15 (0-50); Magnesium 1.8 mg/dL (1.6-2.3); Potassium 3.7 mmol/L (3.4-5.1); Sodium 133 mmol/L (137-145); Total Protein 8.1 g/dL (6.3-8.2)
[2022-10-06 08:53] LABS: Troponin I < 0.012 ng/mL (0.01-0.034)
--- NOTE | 2022-10-06 09:47 | ED_ITS ---
HPI - Fall General Chief Complaint: Fall Stated Complaint: fall yesterday, pain Time Seen by Provider: 10/06/22 07:55 Source: patient, family and EMS Mode of arrival: EMS History of Present Illness HPI Narrative: 87-year-old woman who lives independently across the [address] from her daughter had a fall yesterday where she landed on her left posterior ribs states that she did hit her head and attributes the fall to her left leg simply giving out and her knee going to the side she convinced her daughter that she did not need additional medical care yesterday but this morning woke up with severe left posterior rib and flank pain with significant nausea near syncope when standing. Related Data Home Medications Medication Instructions Recorded Confirmed Diphenhydramine Hydrochloride 25 OR ##0 10/17/10 (Benadryl) Simvastatin (Zocor) 40 mg PO HS ##0 10/17/10 carbidopa ER 25 mg-levodopa 100 mg 1 tab PO BID ##0 01/28/17 tablet,extended release (Sinemet CR) Previous Rx's Medication Instructions Recorded docusate sodium 100 mg capsule 100 mg PO BID #20 caps 12/28/17 (Colace) hydrocodone 5 mg-acetaminophen 325 1 tab PO Q4HP PRN #15 tabs 12/28/17 mg tablet ([place]) oxycodone-acetaminophen 5 mg-325 0.5 - 1 tab PO Q6H PRN pain #10 10/06/22 mg tablet tabs Allergies Allergy/AdvReac Type Severity Reaction Status Date / Time cortisone [CORTISONE] Allergy Unknown NAUSEA, Unverified 01/07/18 12:16 PASSED OUT/THINKS IT WAS FROM THE PAIN OF AN INJECTI Influenza Virus Vaccines Allergy Unknown TOLD NOT Verified 10/06/22 10:36 TO GET THE FLU/PNEUMONIA VACCINE pneumococcal vaccine Allergy Unknown TOLD NOT Verified 10/06/22 10:36 TO GET THE FLU/PNEUMONIA VACCINE Patient History Medical History Hyperlipidemia Parkinsons disease Social History Smoking Status: Never smoker Smoking Status: Never smoker alcohol intake frequency: 0-2 drinks per day Alcohol type: wine Substance Use Type: does not use Exam Initial Vital Signs Initial Vital Signs: Vital Signs Pulse Rate 72 10/06/22 08:10 Blood Pressure 210/95 H 10/06/22 08:10 Pulse Oximetry 94 10/06/22 08:10 General: Healthy appearing, in mild distress. Able to give a complete and coherent history. Well-nourished well-developed HEENT: Moist mucous membranes, normal sclera with reactive pupils, head is atraumatic Neck: Mild upper cervical spine tenderness with mild tenderness at the right occipital insertion site, Respiratory: Lungs are clear to auscultation, no wheezing no rales no rhonchi. Full and symmetrical air movement Chest: She is able to sit up with minimal pain, no bruising over the chest wall. She does have erythema id agne over the left chest wall from chronic heating pad use. No point tenderness over posterior ribs, thoracic spine or iliac crest. Cardiac: Regular rate and rhythm 4/6 systolic ejection murmur Abdomen: Soft, nontender, no bruising, good bowel tones, no reproducible flank pain Skin: Warm and dry, bruise over the posterior left humerus. Neurologic: Grossly neurologically intact with no obvious asymmetries or ab normalities. NH = 0 Extremities: No trauma, well perfused. No tenderness with internal external r otation at the left hip. Left knee with minor effusion but no specific tenderness to palpation and ligaments are stable on exam Psych: Cooperative, appropriate insight and affect Procedures Orthopedic Splinting/Casting L knee immobilizer: Time of procedure: 11:42 Side: left Lower Extremity Injury Location: knee Lower Extremity Immobilizer: knee immobilizer Post splinting neuro exam: intact Post splinting vascular exam: intact Placed by: Nursing Course Orders Ordered: ED Orders 10/06/22 08:18 Complete Blood Count AUTO DIFF Stat Comprehensive Metabolic Panel Stat Magnesium Stat Troponin I Stat 10/06/22 08:26 CT angio head and neck Stat CT cervical spine wo con Stat CT chest abd pel w con Stat XR knee LT 3V Stat 10/06/22 08:27 Urinalysis and Microscopic Stat 10/06/22 08:33 EKG-12 Lead Stat Hydromorphone HCl (Hydromorphone 0.5 Mg Inj) 0.5 mg IV Q15MIN PRN PRN Reason: Pain, Vital Signs Vital signs: Vital Signs - 8 hr 10/06/22 08:26 10/06/22 08:10 10/06/22 08:10 Temperature 97.7 F Pulse Rate 69 72 Respiratory Rate 18 Blood Pressure 183/70 H 210/95 H Pulse Oximetry 69 L 94 Oxygen Delivery Method Room Air 10/06/22 08:21 10/06/22 08:21 10/06/22 08:30 Temperature Pulse Rate 72 Respiratory Rate Blood Pressure 183/70 H 182/81 H Pulse Oximetry 97 Oxygen Delivery Method 10/06/22 08:30 10/06/22 08:45 10/06/22 08:45 Temperature Pulse Rate 69 67 Respiratory Rate Blood Pressure 189/86 H Pulse Oximetry 96 96 Oxygen Delivery Method 10/06/22 09:00 10/06/22 09:00 10/06/22 09:30 Temperature Pulse Rate 69 70 Respiratory Rate 20 Blood Pressure 183/78 H Pulse Oximetry 97 Oxygen Delivery Method MDM - Fall Lab Data Result diagrams: 10/06/22 08:18 10/06/22 08:18 Labs: Lab Results 10/06/22 10/06/22 10/06/22 Range/Units 08:18 08:18 08:18 WBC 5.8 (4.5-11.0) X10^3/uL RBC 4.24 (4.0-5.2) X10^6/uL Hgb 13.7 (12.0-16.0) g/dL Hct 41.3 (36-46) % MCV 97.3 (80-100) fL MCH 32.2 (26-34) PG MCHC 33.1 (30-36) % RDW 13.5 (11.6-14.8) % Plt Count 194 (150-400) X10^3/uL Neut % (Auto) 78.5 H (50-75) % Lymph % (Auto) 10.4 L (25-40) % [place] % (Auto) 8.9 (3-14) % Eos % (Auto) 1.1 L (2-4) % Baso % (Auto) 1.1 (0-2) % Neut # (Auto) 4600 (0460-3697) /uL Lymph # (Auto) 600 L (2474-5403) /uL [place] # (Auto) 500 (0-900) /uL Eos # (Auto) 100 (0-450) /uL Baso # (Auto) 100 (0-100) /uL Sodium 133 L (137-145) mmol/L Potassium 3.7 (3.4-5.1) mmol/L Chloride 98 (98-107) mmol/L Carbon Dioxide 28 (22-32) mmol/L BUN 19 H (7-17) mg/dL Creatinine 0.84 (0.52-1.04) mg/dL Estimated GFR > 60 (>60) mL/min BUN/Creatinine Ratio 22.6 H (6-22) Glucose 112 H (80-110) mg/dL Calcium 9.3 (8.4-10.2) mg/dL Magnesium 1.8 (1.6-2.3) mg/dL Total Bilirubin 1.0 (0.2-1.3) mg/dL AST 26 (14-36) IU/L ALT 19 (<35) IU/L Alkaline Phosphatase 65 (38-126) U/L Troponin I < 0.012 (0.01-0.034) ng/mL Total Protein 8.1 (6.3-8.2) g/dL Albumin 4.4 (3.5-5.0) g/dL Globulin 3.7 (1.7-4.1) g/dL Albumin/Globulin Ratio 1.2 (1.0-2.8) ECG Data Interpretation: Sinus rhythm at a rate of 66 Poor R-wave progression No acute ischemic changes Normal intervals and normal axis MDM Narrative Medical decision making narrative: [facility] CC: Fall yesterday, left knee ?going out?, near-syncope when standing up increased left flank pain Complicating co-morbidities: Parkinson's disease, gait instability Corroborating data: Data collected from: patient, daughter Outside medical records are not available Differential considered: Mechanical fall, stroke, intracranial bleeding, rib pain, thoracic fracture, splenic injury with internal bleeding, retroperitoneal bleeding/bruising, ligamentous knee injury, Exam documented above, pertinent findings include: Absence of significant point tenderness on bony points of describe pain Lab Test results independently reviewed as above. Pertinent findings: CBC is unremarkable, chemistries show no dramatic abnormalities. Troponin is unremar kable. Independently reviewed EKG as above. Imaging studies independently reviewed: CT cervical spine shows no acute fractures. CT angiogram of the head and neck shows no acute intracranial hemorr kathi or obvious infarct and mild atherosclerosis through the vessels with no large vessel occlusion or significant stenosis. Knee x-ray shows degenerative arthritis and no fractures. CT of the chest abdomen pelvis shows old left 3rd and 4th rib fractures and a 12th rib fracture that likely is the cause of her pain. There is no hemopneumothorax. No splenic abnormalities, no retroperitoneal abnormalities and no bleeding identified. Incidentally appreciated ascending thoracic aneurysm at 4.4 cm. Treatments: Pain medication, placement of knee immobilizer patient has walker available at home Re-evaluations:1135 all findings reviewed with patient and her daughter. Did inform her of the incidental ascending thoracic aneurysm that was appreciated. Discussion: No evidence of stroke, infection, bleeding, intra-abdominal abnormality. Left posterior rib fracture with no complications appreciated. Pain is better controlled. Knee immobilizer is placed. She has walker available at home. Needs orthopedic follow-up and will give her brief course of pain medications along with instructions on constipation. Diagnosis: 87-year-old woman with what appears to be a mechanical fall yest erday, left 12th rib fracture with pain significant enough that she was near syncopal this morning. No evidence of intra-abdominal injuries or bleeding. Knee pain with knee instability. Disposition: see below, along with detailed discharge instructions that have been reviewed with patient as well as indications for ED re-evaluation and additional outpatient follow up Discharge Plan Departure Patient Disposition: Home Clinical Impression: Parkinson disease Fall Qualifiers: Encounter type: initial encounter Qualified Code(s): W19.XXXA - Unspecified fall, initial encounter Knee instability Qualifiers: Laterality: left Qualified Code(s): M25.362 - Other instability, left knee Closed rib fracture Qualifiers: Encounter type: initial encounter Rib fracture type: single rib Laterality: left Qualified Code(s): S22.32XA - Fracture of one rib, left side, initial encounter for closed fracture Instructions: DI for Rib Fracture Activity Restrictions/Additional Instructions: Thank you for coming in today You do have a 12th rib fracture on the left side. This will improve. It is important to make sure that you are taking deep breaths and moving. Using 400 mg of ibuprofen (2 pmru-jpo-qovrdic pills) and 1 Tylenol every 6 hours can be very helpful in controlling pain. For severe pain you can use half to 1 Percocet with to ibuprofen. Regarding your knee instability, there are no fractures however with the knee unstable enough that it caused fall, I have given you a needle immobilizer. I would recommend that you call [facility] at [phone] to schedule a follow-up appointment regarding your left knee I did not find any evidence for stroke, infection, intra-abdominal bleeding or other injuries to explain your fall yesterday. Incidentally noted on your CT scan was a 4.4 cm aneurysm of your aorta just as it comes out from your heart. Given that you are already having regularly scheduled echocardiogram for your heart murmur, I am fairly sure your cardio logist is aware of this but I would encourage you to discuss it with him If you find that you are getting worse or develop any new symptoms, please feel free to return to the emergency department for further evaluation. Prescriptions: New oxycodone-acetaminophen 5-325 mg tablet 0.5 - 1 tab PO Q6H PRN (Reason: pain) Qty: 10 0RF No Action Simvastatin (Zocor) 40 mg PO HS Qty: 0 Diphenhydramine Hydrochloride (Benadryl) 25 OR Qty: 0 carbidopa-levodopa [Sinemet CR] 25 MG/100 MG tablet extended release 1 tab PO BID Qty: 0 hydrocodone-acetaminophen [[place]] 5 MG/325 MG tablet 1 tab PO Q4HP PRNQty: 15 0RF docusate sodium [Colace] 100 MG capsule 100 mg PO BID Qty: 20 0RF Referrals: Nataliia Garcia MD [Primary Care Provider] - Stand Alone Forms: Patient Portal/API
== END 2022-10-06 11:55 | disposition home or self-care (01) ==
PROVIDERS: Emergency Provider Emergency Medicine; Family Provider Internal Medicine; PCP Internal Medicine
DX: S22.32XA Fracture of one rib, left side, initial encounter for closed fracture (principal); M25.362 Other instability, left knee; W18.30XA Fall on same level, unspecified, initial encounter; G20 Parkinson's disease
CPT/HCPCS: 36415; 70496; 70498; 71260; 72125; 73562; 74177; 80053; 81003; 83735; 84484; 85025; 93005; 93010; 99283; 99284; Q9967

== ENCOUNTER 2023-07-15 14:49 | Emergency (ER) | payer OTHER, SELFPAY ==
[2023-07-15 15:15] VITALS: BP 142/67; PULSE 82; RESP 18; TEMP 36.8; O2SAT 99; BMI 23.0
--- NOTE | 2023-07-15 15:21 | DI.RAD.S_ITS ---
PROCEDURE: XR ANKLE RT MIN 3V INDICATIONS: Right ankle swelling and pain. TECHNIQUE: 3 views of the ankle were acquired. COMPARISON: None. FINDINGS: Bones: Moderate diffuse osteopenia which limits evaluation. No definite fractures. Normal alignment. Plantar calcaneal enthesophyte. Degenerative changes of the tibiotalar joint. Ankle mortise is normally aligned. No suspicious bony lesions. Soft tissues: No tibiotalar joint effusion. Achilles tendon appears normal. Moderate lateral malleolar soft tissue edema. IMPRESSION: Moderate lateral malleolar soft tissue edema without definite underlying fracture. Normal alignment. Moderate osteopenia. If there is persistent clinical concern for occult fracture given adequate mechanism of injury, consider repeat imaging in 10-14 days. Dictated by: Jovanny Crespo M.D. on 07/15/2023 at 16:13 Approved by: Jovanny Crespo M.D. on 07/15/2023 at 16:15
[2023-07-15 17:23] VITALS: BP 179/80; PULSE 78; RESP 20; TEMP 36.6; O2SAT 98
--- NOTE | 2023-07-15 17:23 | ED_ITS ---
HPI - Extremity Injury (Lower) <Lauren Arriola PA-C - Last Filed: 07/15/23 17:35> General Chief Complaint: Extremity Injury, Lower Stated Complaint: rt ankle injury Time Seen by Provider: 07/15/23 17:23 Source: patient Mode of arrival: Ambulatory History of Present Illness HPI Narrative: 88-year-old female with past medical history Parkinson's disease, hyperlipidemia, hypertension presents to the ED status post a mechanical fall sustained earlier this morning. Patient endorses swelling and pain in the right ankle on the lateral aspect. Patient denies numbness, tingling, weakness. Patient denies chest pain, shortness of breath, loss of consciousness, head strike. Patient states that she only walks with a walker now and does suffer frequent falls due to the Parkinson's. Related Data Home Medications Medication Instructions Recorded Confirmed Diphenhydramine Hydrochloride 25 OR ##0 10/17/10 (Benadryl) Simvastatin (Zocor) 40 mg PO HS ##0 10/17/10 carbidopa ER 25 mg-levodopa 100 mg 1 tab PO BID ##0 01/28/17 tablet,extended release (Sinemet CR) Previous Rx's Medication Instructions Recorded docusate sodium 100 mg capsule 100 mg PO BID #20 caps 12/28/17 (Colace) hydrocodone 5 mg-acetaminophen 325 1 tab PO Q4HP PRN #15 tabs 12/28/17 mg tablet ([place]) oxycodone-acetaminophen 5 mg-325 0.5 - 1 tab PO Q6H PRN pain #10 10/06/22 mg tablet tabs Allergies Allergy/AdvReac Type Severity Reaction Status Date / Time cortisone [CORTISONE] Allergy Unknown NAUSEA, Verified 07/15/23 15:15 PASSED OUT/THINKS IT WAS FROM THE PAIN OF AN INJECTI Influenza Virus Vaccines Allergy Unknown TOLD NOT Verified 07/15/23 15:15 TO GET THE FLU/PNEUMONIA VACCINE pneumococcal vaccine Allergy Unknown TOLD NOT Verified 07/15/23 15:15 TO GET THE FLU/PNEUMONIA VACCINE Review of Systems <Lauren Arriola PA-C - Last Filed: 07/15/23 17:35> Constitutional Constitutional: Denies chills, Denies fatigue, Denies fever(s), Denies frequent falls, Denies lethargy and Denies weakness Eyes Eyes: Denies change in vision, Denies eye discharge, Denies irritation and Denies loss of vision ENT Ears, Nose, Mouth, and Throat: Denies change in voice, Denies dizziness, Denies neck pain, Denies sore throat and Denies throat swelling Cardiovascular Cardiovascular: Denies chest pain, Denies irregular heart rhythm, Denies lightheadedness, Denies palpitations, Denies dyspnea, Denies dyspnea on exertion and Denies orthopnea Respiratory Respiratory: Denies cough, Denies dyspnea, Denies dyspnea on exertion and Denies wheezing Gastrointestinal Gastrointestinal: Denies abdominal pain, Denies change in bowel habits, Denies diarrhea, Denies nausea and Denies vomiting Musculoskeletal Musculoskeletal: Denies neck pain and Denies numbness Comments: Right ankle swelling, pain Integumentary/Breasts Skin/Breast: Denies pruritus, Denies erythema, Denies rash and Denies wounds Neurologic Neurologic: Denies behavioral changes, Denies confusion, Denies dizziness, Denies frequent falls, Denies loss of vision, Denies numbness and Denies weakness Psychiatric Psychiatric: Denies anxiety, Denies behavioral changes, Denies confusion, Denies depression, Denies homicidal ideation and Denies suicidal ideation Endocrine Endocrine: Denies fatigue, Denies flushing and Denies palpitations Hematologic/Lymphatic Hematologic/Lymphatic: Denies easy bruising Allergic/Immunologic Allergic/Immunologic: Denies urticaria, Denies throat swelling and Denies wheezing Patient History <Lauren Arriola PA-C - Last Filed: 07/15/23 17:35> Medical History Hyperlipidemia Parkinsons disease Social History Smoking Status: Never smoker Smoking Status: Never smoker alcohol intake frequency: 0-2 drinks per day Alcohol type: wine Substance Use Type: does not use Exam <Lauren Arriola PA-C - Last Filed: 07/15/23 17:35> Narrative Exam Narrative: Const General:?cooperative, healthy appearing and comfortable [facility] Head:?normal to inspection Ears:?hearing grossly normal bilaterally Nose:?external nose normal Face and sinus:?normal facial exam and sinuses nontender Mouth:?oral mucosae normal Throat:?posterior oropharynx normal Eyes General:?appearance normal, both eyes and all related structures Neck Neck:?normal visual inspection and no lymphadenopathy noted Resp Effort & Inspection:?normal respiratory effort Auscultation:?clear to auscultation bilaterally Cardio Rate:?regular rate Rhythm:?regular rhythm Musculoskeletal Right ankle appears swollen and tender to touch on the lateral aspect. Patient is neurovascularly intact. Patient is unable to bear weight and walk due to the pain. Patient appears neurovascularly intact. Neuro General:?patient alert, patient awake and patient oriented x3 Initial Vital Signs Initial Vital Signs: Vital Signs Temperature 98.2 F 07/15/23 15:15 Pulse Rate 82 07/15/23 15:15 Respiratory Rate 18 07/15/23 15:15 Blood Pressure 142/67 H 07/15/23 15:15 Pulse Oximetry 99 07/15/23 15:15 Oxygen Delivery Method Room Air 07/15/23 15:15 <Joshua Barboza MD - Last Filed: 07/16/23 08:09> Initial Vital Signs Initial Vital Signs: Vital Signs Temperature 98.2 F 07/15/23 15:15 Pulse Rate 82 07/15/23 15:15 Respiratory Rate 18 07/15/23 15:15 Blood Pressure 142/67 H 07/15/23 15:15 Pulse Oximetry 99 07/15/23 15:15 Oxygen Delivery Method Room Air 07/15/23 15:15 Course <Lauren Arriola PA-C - Last Filed: 07/15/23 17:35> Orders Ordered: ED Orders 07/15/23 15:21 XR ankle RT min 3V Stat Vital Signs Vital signs: Vital Signs - 8 hr 07/15/23 15:15 07/15/23 17:23 Temperature 98.2 F 97.8 F Pulse Rate 82 78 Respiratory Rate 18 20 Blood Pressure 142/67 H 179/80 H Pulse Oximetry 99 98 Oxygen Delivery Method Room Air Room Air <Joshua Barboza MD - Last Filed: 07/16/23 08:09> Orders Ordered: ED Orders 07/15/23 15:21 XR ankle RT min 3V Stat Vital Signs Vital signs: Vital Signs - 8 hr 07/15/23 15:15 07/15/23 17:23 Temperature 98.2 F 97.8 F Pulse Rate 82 78 Respiratory Rate 18 20 Blood Pressure 142/67 H 179/80 H Pulse Oximetry 99 98 Oxygen Delivery Method Room Air Room Air MDM - Extremity Injury (Lower) <Lauren Arriola PA-C - Last Filed: 07/15/23 17:35> [facility] Narrative Medical decision making narrative: 88-year-old female with past medical history Parkinson's disease, hyperlipidemia, hypertension presents to the ED status post a mechanical fall sustained earlier this morning. Obtained x-ray to rule out fractur e/dislocation. X-rays were without acute findings. Patient's symptoms likely due to a musculoskeletal sprain/strain. Andrew wrap was applied. Recommends supportive care with RICE, lidocaine patches, ibuprofen, Tylenol, heat packs. Recommend follow-up with PCP as soon as possible. ED return precautions discussed with patient. Patient verbalized understanding. Medical records reviewed: Yes Discharge Plan Departure Patient Disposition: Home Clinical Impression: Ankle sprain and strain, Hyperlipidemia Instructions: DI for Ankle Sprain Activity Restrictions/Additional Instructions: You were evaluated in the ED today for an ankle injury. Your x-ray did not show any fractures or dislocations. Your symptoms are likely due to a ankle sprain/strain for which we have applied an Andrew wrap. You may keep the ankle Andrew wrapped for comfort. You may also rest the ankle, elevated above heart level. You may ice it for the 1st 24 hours followed by heat packs thereafter. You can also apply lidocaine patches for pain relief and also take ibuprofen and Tylenol. Please follow-up with your PCP as soon as possible. Return to the ED if you have worsening symptoms, numbness, tingling, weakness. Prescriptions: No Action Simvastatin (Zocor) 40 mg PO HS Qty: 0 Diphenhydramine Hydrochloride (Benadryl) 25 OR Qty: 0 carbidopa-levodopa [Sinemet CR] 25 MG/100 MG tablet extended release 1 tab PO BID Qty: 0 hydrocodone-acetaminophen [[place]] 5 MG/325 MG tablet 1 tab PO Q4HP PRNQty: 15 0RF docusate sodium [Colace] 100 MG capsule 100 mg PO BID Qty: 20 0RF oxycodone-acetaminophen 5-325 mg tablet 0.5 - 1 tab PO Q6H PRN (Reason: pain) Qty: 10 0RF Referrals: Nataliia Garcia MD [Primary Care Provider] - Stand Alone Forms: Patient Portal/API ED Sign-out <Joshua Barboza MD - Last Filed: 07/16/23 08:09> Cosign ED Attending Cosignature Attestation: I was immediately available in the department for consultation. ?This documentation has been reviewed and I agree with assessment and plan. Supervised by Joshua Barboza MD
== END 2023-07-15 17:39 | disposition home or self-care (01) ==
PROVIDERS: Emergency Provider Student in an Organized Health Care Education/Training Program; Family Provider Internal Medicine; PCP Internal Medicine
DX: S93.401A Sprain of unspecified ligament of right ankle, initial encounter (principal); S96.911A Strain of unspecified muscle and tendon at ankle and foot level, right foot, initial encounter; W18.30XA Fall on same level, unspecified, initial encounter; G20.A1 Parkinson's disease without dyskinesia, without mention of fluctuations
CPT/HCPCS: 73610; 99281; 99283

== ENCOUNTER → 2023-09-03 12:44 | Outpatient (CLI) | payer OTHER, SELFPAY ==
--- NOTE | 2023-09-03 12:46 | DI.US.S_ITS ---
PROCEDURE: US EXTREMELY NONVASC UPPER RT INDICATIONS: UPPER ARM PALPABLE LUMP TECHNIQUE: Real-time scanning was performed of the right upper over the area of the palpable lump, with image documentation. COMPARISON: None. FINDINGS: Ultrasound was performed in the area of interest. No abnormalities identified in the right upper arm to correlate with the palpable lump. IMPRESSION: No abnormality is identified in the area of interest. If clinically indicated, CT or MRI can be obtained for further evaluation. Dictated by: Timi Gan M.D. on 09/03/2023 at 20:22 Approved by: Timi Gan M.D. on 09/03/2023 at 20:26
== END ==
PROVIDERS: Family Provider Internal Medicine; PCP Internal Medicine; Referring Provider Internal Medicine; Visit Provider Internal Medicine
DX: M79.2 Neuralgia and neuritis, unspecified (principal)
CPT/HCPCS: 76882

== ENCOUNTER 2025-01-28 21:24 | Emergency (ER) | payer MEDICARE, SELFPAY ==
[2025-01-28] VITALS (9 sets, daily range): BP systolic 178–208; BP diastolic 79–97; PULSE 79–83; RESP 13–34; TEMP 36.4; O2SAT 97–99; BMI 28.3
--- NOTE | 2025-01-28 21:33 | ED.FALL ---
HPI - Fall General Chief Complaint: Fall Stated Complaint: fall off porch Time Seen by Provider: 01/28/25 21:26 History of Present Illness HPI Narrative: 89-year-old female history of hypertension and Parkinson's disease had a witnessed fall after drinking bottle wine falling 3-5 stairs hitting the concrete floor brought in C-collar backboard by EMS for further evaluation. Per EMS she has chronic right leg deficits secondary to her Parkinson but she was able to move everything prior to being loaded onto the stretcher. She does have a swollen forehead but has no other complaints at this time. Patient denies chest pain, shortness of breath, bowel or bladder incontinence, blurred vision, nausea, vomiting, headache, dizziness, neck pain, back pain and abdominal pain. Other than what is stated 14 point review of system is negative. Related Data Home Medications Medication Instructions Recorded Confirmed Diphenhydramine Hydrochloride 25 OR ##0 10/17/10 (Benadryl) Simvastatin (Zocor) 40 mg PO HS ##0 10/17/10 carbidopa ER 25 mg-levodopa 100 mg 1 tab PO BID ##0 01/28/17 tablet,extended release (Sinemet CR) Previous Rx's Medication Instructions Recorded docusate sodium 100 mg capsule 100 mg PO BID #20 caps 12/28/17 (Colace) hydrocodone 5 mg-acetaminophen 325 1 tab PO Q4HP PRN #15 tabs 12/28/17 mg tablet ([place]) oxycodone-acetaminophen 5 mg-325 0.5 - 1 tab PO Q6H PRN pain #10 10/06/22 mg tablet tabs hydrocodone 5 mg-acetaminophen 325 1 tab PO Q6H PRN pain #20 tabs 01/28/25 mg tablet Allergies Allergy/AdvReac Type Severity Reaction Status Date / Time cortisone [CORTISONE] Allergy Unknown NAUSEA, Verified 07/15/23 15:15 PASSED OUT/THINKS IT WAS FROM THE PAIN OF AN INJECTI Influenza Virus Vaccines Allergy Unknown TOLD NOT Verified 07/15/23 15:15 TO GET THE FLU/PNEUMONIA VACCINE pneumococcal vaccine Allergy Unknown TOLD NOT Verified 07/15/23 15:15 TO GET THE FLU/PNEUMONIA VACCINE Review of Systems Review of Systems ROS Unobtainable: All systems reviewed & are unremarkable except as noted in HPI and below Patient History Medical History Hyperlipidemia Parkinsons disease Social History Smoking Status: Never smoker alcohol intake frequency: 0-2 drinks per day Alcohol type: wine Exam Narrative Exam Narrative: GENERAL: [89] year old patient appears stated age. Well-developed patient, in mild distress. HEAD: Atraumatic. Normocephalic. L forehead contusion/swelling EYES: Pupils equal round and reactive. Extraocular motions intact. No scleral icterus. No injection or drainage. ENT: Nose without bleeding, purulent drainage. Throat without erythema, tonsillar hypertrophy or exudate. Airway patent. NECK: Trachea midline. Non tender CARDIOVASCULAR: Regular rate and rhythm without murmurs, gallops, or rubs. RESPIRATORY: Clear to auscultation. Breath sounds equal bilaterally. No wheezes, rales, or rhonchi. GASTROINTESTINAL: Abdomen soft, non-tender, nondistended. EXTREMITIES: No edema or joint tenderness. BACK: Nontender without deformity or crepitance. No flank tenderness. NEURO: AOx3. SKIN: No rash or erythema of visible areas Initial Vital Signs Initial Vital Signs: Vital Signs Temperature 97.5 F L 01/28/25 21:27 Pulse Rate 80 01/28/25 21:27 Respiratory Rate 16 01/28/25 21:27 Blood Pressure 208/79 H 01/28/25 21:27 Pulse Oximetry 98 01/28/25 21:27 Oxygen Delivery Method Room Air 01/28/25 21:27 Course Orders Ordered: ED Orders 01/28/25 21:32 Complete Blood Count AUTO DIFF Stat Comprehensive Metabolic Panel Stat Ethanol (ETOH) Stat Lactate (Lactic Acid) Stat Lipase Stat PTT Partial Thromboplastin Juan Stat Prothrombin Time INR Stat 01/28/25 21:36 CT Trauma Chest Abdomen Pelvis Stat 01/28/25 21:37 Type and Screen Stat Urine Drug Screen, Rapid Stat EKG-12 Lead Stat 01/28/25 21:38 CT cervical spine wo con Stat CT head/brain wo con Stat Discontinued Medications Diphtheria/Tetanus/Acell Pertussis (Tet,Diph,Pertuss(Acell),Vac/Pf 0.5 Ml Syringe) 0.5 ml IM .ONCE ONE Stop: 01/28/25 21:37 Vital Signs Vital signs: Vital Signs - 8 hr 01/28/25 21:27 Temperature 97.5 F L Pulse Rate 80 Respiratory Rate 16 Blood Pressure 208/79 H Pulse Oximetry 98 Oxygen Delivery Method Room Air MDM - Fall Lab Data 01/28/25 21:32 01/28/25 21:[address] scan - head: Radiologist's Impression: [address] [address] [address] Scan Report Signed Patient: Radha Mendez MR#: [id number] : 1935 Acct:[id number] Age/Sex: 89 / F Date of Service: 01/28/25 Loc: ED Accession Number: [id number] Procedure: CT head/brain wo con Ordering Provider: Rajendra Lofton D.O. PROCEDURE: CT HEAD/BRAIN WO CON INDICATIONS: Trauma TECHNIQUE: Noncontrast 4.5 mm thick angled axial sections acquired from the foramen magnum to the vertex, with coronal and sagittal reformats. For radiation dose reduction, the following was used: automated exposure control, adjustment of mA and/or kV according to patient size. COMPARISON: [facility], CT, HEAD WITHOUT CONTRAST, 10/02/2016, 23:32. FINDINGS: Image quality: Diagnostic. CSF spaces: Basal cisterns are patent. No extra-axial fluid collections. The ventricles are symmetric in size and shape. Brain: No intracranial bleeds or mass effect. There is cerebral volume loss, with resultant ventricular and sulcal prominence. There are periventricular and deep white matter chronic small vessel ischemic changes. There is intracranial internal carotid artery atherosclerosis. Skull and face: Large left frontal scalp hematoma and swelling. Calvarium and visualized facial bones appear intact, without suspicious lesions. Sinuses: Visualized sinuses and mastoids are clear. IMPRESSION: 1. No acute intracranial pathology. 2. Large left frontal scalp hematoma and swelling. No acute skull fracture. 3. Age related volume loss and extensive white matter small vessel chronic ischemic changes. Dictated by: Bhupendra Moreno M.D. on 01/28/2025 at 22:05 Approved by: Bhupendra Moreno M.D. on 01/28/2025 at 22:[address] [address] [address] Scan Report Signed Patient: Radha Mendez MR#: [id number] : 1935 Acct:[id number] Age/Sex: 89 / F Date of Service: 01/28/25 Loc: ED Accession Number: [id number] Procedure: CT Trauma Chest Abdomen Pelvis Ordering Provider: Rajendra Lofton D.O. PROCEDURE: CT TRAUMA CHEST ABDOMEN PELVIS INDICATIONS: Fall TECHNIQUE: MDCT axial chest images were obtained with IV contrast in the arterial phase. Maximum intensity projections and multiplanar reformats were obtained. MDCT axial abdomen and pelvis images were obtained with IV contrast in the portal venous phase. Multiplanar reformats were obtained. Optional delayed phase scanning may also be obtained Advanced techniques were used to lower patient radiation exposure. COMPARISON: [facility], CT, CT CHEST ABD PEL W CON, 10/06/2022, 8:35. FINDINGS Image Quality: Diagnostic. Chest: Lungs and pleura: No pneumothorax or hemothorax. No pulmonary contusions or lacerations. No solid pulmonary nodule requiring follow-up. Subpleural reticular thickening consistent fibrosis. Calcified granulomas Vascular: No dissection or pseudoaneurysm. No incidental central pulmonary embolism. No hemopericardium. Prominent heart size. Mediastinum: No mediastinum hematoma. No suspicious mass or lymph nodes. Ascending aortic aneurysm measuring 3.9 cm, (7/39). Calcified mediastinal lymph. No actionable thyroid nodules. Chest wall: Intact clavicles, scapula, and glenohumeral joint. Left 4-5th rib fractures nondisplaced, (5/3). Possible left lateral 7th rib fracture. Prior left 3rd rib fracture. Remote left posterior 12th rib fracture. Thoracic spine: No acute fracture or traumatic subluxation. ABDOMEN and PELVIS: Liver: No laceration or capsular hematoma. Gallbladder: No calcified stones. Biliary system: Non-dilated. Pancreas: Unremarkable. Spleen: No laceration or capsular hematoma. Adrenals: Bilateral adrenal thickening, unchanged. Kidneys: No contrast extravasation or hydronephrosis. No solid masses. Vessels and lymph nodes: No pathology lymph nodes by size criteria. No dissection or aneurysm. No retroperitoneal hematoma. Bowel and peritoneum: No suspicious region of mesenteric hemorrhage or hemoperitoneum. No bowel obstruction. Normal appendix. Pelvis: Unremarkable bladder. Trace presacral edema. Pelvic ring and femurs: No pelvic ring disruption. No hip fractures. Lumbar spine: No acute fracture or traumatic subluxation. Scoliosis. Subcutaneous lumbar edema. Abdominal wall: No drainable fluid collection or hematoma. IMPRESSION: 1. Left 4-5th nondisplaced rib fractures appear acute. Possible left lateral 7th rib fracture. 2. No pneumothorax. No hemothorax. 3. No free fluid in the abdomen or pelvis. 4. Bilateral adrenal thickening. This could represent adrenal hyperplasia. Dictated by: Mike Espino M.D. on 01/28/2025 at 22:25 Approved by: Mike Espino M.D. on 01/28/2025 at 22:42 ECG Data Interpretation: SR w/ PVC FL 202 QRS [address]-t wave No old ekg to compare against MDM Narrative Medical decision making narrative: All lab work vital signs nurse triage note medication list in all imaging does studies and all previous ER visits reviewed. GCS of 15 nonfocal neuro exam moving all her extremities awake alert oriented at this time on reexamination. Will DC home on [place] for pain control and to follow up with PCP in 1-2 weeks for follow up. Differential diagnosis includes subdural hemorrhage fracture dislocation pneumothorax contusion. Discharge Plan Departure Patient Disposition: Home Clinical Impression: Multiple rib fractures Qualifiers: Encounter type: initial encounter Fracture type: closed Laterality: left Qualified Code(s): S22.42XA - Multiple fractures of ribs, left side, initial encounter for closed fracture Contusion of forehead Qualifiers: Encounter type: initial encounter Qualified Code(s): S00.83XA - Contusion of other part of head, initial encounter Instructions: DI for Rib Fracture Activity Restrictions/Additional Instructions: Return with new or worsening symptoms. Take your medicines as directed. Follow up PCP in 1-2 weeks for follow up care Prescriptions: New hydrocodone-acetaminophen 5-325 mg tablet 1 tab PO Q6H PRN (Reason: pain) Qty: 20 0RF No Action Simvastatin (Zocor) 40 mg PO HS Qty: 0 Diphenhydramine Hydrochloride (Benadryl) 25 OR Qty: 0 carbidopa-levodopa [Sinemet CR] 25 MG/100 MG tablet extended release 1 tab PO BID Qty: 0 hydrocodone-acetaminophen [[place]] 5 MG/325 MG tablet 1 tab PO Q4HP PRNQty: 15 0RF docusate sodium [Colace] 100 MG capsule 100 mg PO BID Qty: 20 0RF oxycodone-acetaminophen 5-325 mg tablet 0.5 - 1 tab PO Q6H PRN (Reason: pain) Qty: 10 0RF Referrals: Nataliia Garcia MD [Primary Care Provider] - Stand Alone Forms: Patient Portal/API/Survey
--- NOTE | 2025-01-28 21:36 | DI.CT.S_ITS ---
PROCEDURE: CT TRAUMA CHEST ABDOMEN PELVIS INDICATIONS: Fall TECHNIQUE: MDCT axial chest images were obtained with IV contrast in the arterial phase. Maximum intensity projections and multiplanar reformats were obtained. MDCT axial abdomen and pelvis images were obtained with IV contrast in the portal venous phase. Multiplanar reformats were obtained. Optional delayed phase scanning may also be obtained Advanced techniques were used to lower patient radiation exposure. COMPARISON: [facility], CT, CT CHEST ABD PEL W CON, 10/06/2022, 8:35. FINDINGS Image Quality: Diagnostic. Chest: Lungs and pleura: No pneumothorax or hemothorax. No pulmonary contusions or lacerations. No solid pulmonary nodule requiring follow-up. Subpleural reticular thickening consistent fibrosis. Calcified granulomas Vascular: No dissection or pseudoaneurysm. No incidental central pulmonary embolism. No hemopericardium. Prominent heart size. Mediastinum: No mediastinum hematoma. No suspicious mass or lymph nodes. Ascending aortic aneurysm measuring 3.9 cm, (7/39). Calcified mediastinal lymph. No actionable thyroid nodules. Chest wall: Intact clavicles, scapula, and glenohumeral joint. Left 4-5th rib fractures nondisplaced, (5/3). Possible left lateral 7th rib fracture. Prior left 3rd rib fracture. Remote left posterior 12th rib fracture. Thoracic spine: No acute fracture or traumatic subluxation. ABDOMEN and PELVIS: Liver: No laceration or capsular hematoma. Gallbladder: No calcified stones. Biliary system: Non-dilated. Pancreas: Unremarkable. Spleen: No laceration or capsular hematoma. Adrenals: Bilateral adrenal thickening, unchanged. Kidneys: No contrast extravasation or hydronephrosis. No solid masses. Vessels and lymph nodes: No pathology lymph nodes by size criteria. No dissection or aneurysm. No retroperitoneal hematoma. Bowel and peritoneum: No suspicious region of mesenteric hemorrhage or hemoperitoneum. No bowel obstruction. Normal appendix. Pelvis: Unremarkable bladder. Trace presacral edema. Pelvic ring and femurs: No pelvic ring disruption. No hip fractures. Lumbar spine: No acute fracture or traumatic subluxation. Scoliosis. Subcutaneous lumbar edema. Abdominal wall: No drainable fluid collection or hematoma. IMPRESSION: 1. Left 4-5th nondisplaced rib fractures appear acute. Possible left lateral 7th rib fracture. 2. No pneumothorax. No hemothorax. 3. No free fluid in the abdomen or pelvis. 4. Bilateral adrenal thickening. This could represent adrenal hyperplasia. Dictated by: Mike Espino M.D. on 01/28/2025 at 22:25 Approved by: Mike Espino M.D. on 01/28/2025 at 22:42
--- NOTE | 2025-01-28 21:37 | PC.NURSE ---
Pt to imaging via ED stretcher with RN, machine tool technology instructor, and interventional tech
--- NOTE | 2025-01-28 21:37 | EKG_ITS ---
[place] [id number] [place] [id number] Test Date: 2025-01-28 Pat Name: Radha Mendez Department: [facility] Room: Gender: Female Provisioning Specialist: : 1935 Requested By: Order Number: [id number] Reading MD: Ned Castro Measurements Intervals [place] Rate: 83 P: 77 SD: 202 QRS: 12 QRSD: 76 T: 266 QT: 370 QTc: 434 Interpretive Statements Sinus rhythm with occasional premature ventricular complexes Low voltage QRS Septal infarct , age undetermined Electronically Signed On 01-29-2025 7:34:47 PDT by Ned Castro
--- NOTE | 2025-01-28 21:38 | DI.CT.S_ITS ---
PROCEDURE: CT HEAD/BRAIN WO CON INDICATIONS: Trauma TECHNIQUE: Noncontrast 4.5 mm thick angled axial sections acquired from the foramen magnum to the vertex, with coronal and sagittal reformats. For radiation dose reduction, the following was used: automated exposure control, adjustment of mA and/or kV according to patient size. COMPARISON: [facility], CT, HEAD WITHOUT CONTRAST, 10/02/2016, 23:32. FINDINGS: Image quality: Diagnostic. CSF spaces: Basal cisterns are patent. No extra-axial fluid collections. The ventricles are symmetric in size and shape. Brain: No intracranial bleeds or mass effect. There is cerebral volume loss, with resultant ventricular and sulcal prominence. There are periventricular and deep white matter chronic small vessel ischemic changes. There is intracranial internal carotid artery atherosclerosis. Skull and face: Large left frontal scalp hematoma and swelling. Calvarium and visualized facial bones appear intact, without suspicious lesions. Sinuses: Visualized sinuses and mastoids are clear. IMPRESSION: 1. No acute intracranial pathology. 2. Large left frontal scalp hematoma and swelling. No acute skull fracture. 3. Age related volume loss and extensive white matter small vessel chronic ischemic changes. Dictated by: Bhupendra Moreno M.D. on 01/28/2025 at 22:05 Approved by: Bhupendra Moreno M.D. on 01/28/2025 at 22:07
--- NOTE | 2025-01-28 21:38 | DI.CT.S_ITS ---
PROCEDURE: CT CERVICAL SPINE WO CON INDICATIONS: Trauma TECHNIQUE: Noncontrast 3 mm thick sections acquired from the skull base to the T4 level. Sagittal and coronal reformats were then constructed. For radiation dose reduction, the following was used: automated exposure control, adjustment of mA and/or kV according to patient size. COMPARISON: [facility], CT, CT CERVICAL SPINE WO CON, 10/06/2022, 8:35. FINDINGS: Image quality: Excellent. Bones: No fractures or dislocations. [id number] degenerative endplate changes and bilateral facet hypertrophic changes are noted throughout cervical spine. Visualized superior ribs are intact. Soft tissues: Prevertebral soft tissues are normal in thickness. No paravertebral hematomas. No apical pneumothoraces. IMPRESSION: 1. No displaced fracture or traumatic subluxation. 2. Multilevel spondylitic changes throughout cervical spine as above. Dictated by: Bhupendra Moreno M.D. on 01/28/2025 at 22:07 Approved by: Bhupendra Moreno M.D. on 01/28/2025 at 22:09
[2025-01-28 22:12] LABS: Add Manual Diff / Slide Review NO; Basophils Absolute Auto 0 /uL (0-100); Basophils Percent Auto 0.8 % (0-2); Eosinophils Absolute Auto 100 /uL (0-450); Eosinophils Percent Auto 1.8 % (2-4); Hematocrit 36.6 % (36-46); Hemoglobin 12.8 g/dL (12.0-16.0); Lymphocytes Absolute Auto 1100 /uL (1100-4500); Lymphocytes Percent Auto 19.6 % (25-40); Mean Corpuscular HGB Conc 34.8 % (30-36); Mean Corpuscular Hemoglobin 35.6 PG (26-34); Mean Corpuscular Volume 102.1 fL (80-100); Monocytes Absolute Auto 500 /uL (0-900); Monocytes Percent Auto 8.9 % (3-14); Neutrophils Absolute Auto 3900 /uL (1500-7000); Neutrophils Percent Auto 68.9 % (50-75); Platelet Count 207 X10^3/uL (150-400); Red Blood Cell Count 3.58 X10^6/uL (4.0-5.2); Red Cell Distribution Width 13.5 % (11.6-14.8); White Blood Cell Count 5.6 X10^3/uL (4.5-11.0)
[2025-01-28 22:15] LABS: Prothrombin Time 11.4 SECONDS (9.4-12.5)
[2025-01-28 22:18] LABS: PTT Partial Thromboplastin Tim 34 SECONDS (25.1-36.5)
[2025-01-28 22:20] LABS: Alanine Aminotransferase 22 IU/L (<35); Albumin 4.1 g/dL (3.5-5.0); Albumin Globulin Ratio 1.3 (1.0-2.8); Alkaline Phosphatase 54 U/L (38-126); Aspartate Aminotransferase 35 IU/L (14-36); BUN Creatinine Ratio 17.3 (6-22); Bilirubin Total 0.4 mg/dL (0.2-1.3); Blood Urea Nitrogen 13 mg/dL (7-17); Calcium 8.8 mg/dL (8.4-10.2); Carbon Dioxide 24 mmol/L (22-32); Chloride 98 mmol/L (98-107); Estimated Glomerular Filt Rate > 60 mL/min (>60); Globulin 3.1 g/dL (1.7-4.1); Glucose 87 mg/dL (70-99); HEMOLYSIS < 15 (0-50); Lactate (Lactic Acid) 2.6 mmol/L (0.7-2.1); Lipase 93 U/L (23-300); Potassium 3.9 mmol/L (3.4-5.1); Sodium 132 mmol/L (137-145); Total Protein 7.2 g/dL (6.3-8.2)
[2025-01-28 22:27] LABS: Ethanol (ETOH) 173 mg/dL
[2025-01-28] MEDS: TET,DIPH,PERTUSS(ACELL),VAC/PF 0.5 ML SYRINGE IM (22:27)
[2025-01-28] MEDS: ACETAMINOPHEN IV 1,000 MG/100 ML VIAL 400 MG IV (22:37)
[2025-01-28 23:41] LABS: Reflexed Lactate in 2 Hours Y
[2025-01-29] VITALS: BP 183/84; PULSE 80; RESP 19; O2SAT 97
[2025-01-29] MEDS: HYDROCODONE/ACET 5/325 PREPACK 1 BOTTLE MISC (01:14)
[2025-01-29 01:18] VITALS: BP 174/86; PULSE 79; RESP 19; O2SAT 96
== END 2025-01-29 01:18 | disposition home or self-care (01) ==
PROVIDERS: Emergency Provider Family Medicine; Family Provider Internal Medicine; PCP Internal Medicine
DX: S22.42XA Multiple fractures of ribs, left side, initial encounter for closed fracture (principal); S00.83XA Contusion of other part of head, initial encounter; W17.89XA Other fall from one level to another, initial encounter; Z23 Encounter for immunization
CPT/HCPCS: 70450; 71275; 72125; 74177; 80053; 80320; 83605; 83690; 85025; 85610; 85730; 90471; 93005; 96365; 99284; 90715; J0131; Q9967

== ENCOUNTER 2025-04-30 10:57 | Emergency (ER) | payer MEDICARE, SELFPAY ==
[2025-04-30] VITALS (7 sets, daily range): BP systolic 177–219; BP diastolic 76–98; PULSE 80–84; RESP 16; TEMP 36.5; O2SAT 96–98; BMI 26.6
[2025-04-30 11:46] LABS: Add Manual Diff / Slide Review NO; Hematocrit 37.6 % (36-46); Hemoglobin 12.8 g/dL (12.0-16.0); Lymphocytes Absolute Auto 800 /uL (1100-4500); Mean Corpuscular HGB Conc 34.0 % (30-36); Mean Corpuscular Hemoglobin 34.3 PG (26-34); Mean Corpuscular Volume 100.9 fL (80-100); Platelet Count 231 X10^3/uL (150-400)
[2025-04-30 11:50] LABS: Appearance Urine UA CLOUDY; Bilirubin Urine UA NEGATIVE (NEGATIVE); Color Urine UA YELLOW; Glucose Urine UA NEGATIVE (Negative); Ketones Urine UA TRACE (NEGATIVE); Leukocyte Esterase Urine UA 3+ (NEGATIVE); Nitrite Urine UA NEGATIVE (Negative); Occult Blood Urine UA 3+ (Negative); Protein Urine UA 1+ (Negative); Specific Gravity Urine UA 1.020 (1.000-1.035); Urobilinogen Urine UA 4.0 E.U./dL (0.2); pH Urine UA 6.5 (4.5-8.0)
[2025-04-30 11:59] LABS: Culture Indicated Urine Specimen Cultured
[2025-04-30 12:10] LABS: Alanine Aminotransferase 21 IU/L (<35); Albumin 4.0 g/dL (3.5-5.0); Albumin Globulin Ratio 1.2 (1.0-2.8); Alkaline Phosphatase 64 U/L (38-126); Blood Urea Nitrogen 14 mg/dL (7-17); Calcium 9.1 mg/dL (8.4-10.2); Carbon Dioxide 27 mmol/L (22-32); Chloride 92 mmol/L (98-107); Estimated Glomerular Filt Rate > 60 mL/min (>60); Globulin 3.3 g/dL (1.7-4.1); Glucose 115 mg/dL (70-99); HEMOLYSIS < 15 (0-50); Lipase 80 U/L (23-300); Potassium 4.1 mmol/L (3.4-5.1); Sodium 127 mmol/L (137-145); Total Protein 7.3 g/dL (6.3-8.2)
--- NOTE | 2025-04-30 12:28 | ED.FEMALEGU ---
HPI - Female Genitourinary General Chief complaint: Urogenital-Female Stated complaint: Blood In Urine Source: patient Mode of arrival: EMS History of Present Illness HPI Narrative: 89-year-old female with a history of hypertension and Parkinson's disease presents with hematuria for the past 4 days. Patient denies any abdominal pain, fever, chills or any other symptoms. Related Data Home Medications ?Medication ?Instructions ?Recorded ?Confirmed Diphenhydramine Hydrochloride 25 OR ##0 10/17/10 (Benadryl) Simvastatin (Zocor) 40 mg PO HS ##0 10/17/10 carbidopa ER 25 mg-levodopa 100 mg 1 tab PO BID ##0 01/28/17 tablet,extended release (Sinemet CR) Previous Rx's ?Medication ?Instructions ?Recorded docusate sodium 100 mg capsule 100 mg PO BID #20 caps 12/28/17 (Colace) hydrocodone 5 mg-acetaminophen 325 1 tab PO Q4HP PRN #15 tabs 12/28/17 mg tablet ([place]) oxycodone-acetaminophen 5 mg-325 0.5 - 1 tab PO Q6H PRN pain #10 10/06/22 mg tablet tabs hydrocodone 5 mg-acetaminophen 325 1 tab PO Q6H PRN pain #20 tabs 01/28/25 mg tablet cephalexin 500 mg capsule 500 mg PO Q12H #14 caps 04/30/25 Allergies Allergy/AdvReac Type Severity Reaction Status Date / Time cortisone (CORTISONE) Allergy Unknown NAUSEA, Verified 07/15/23 15:15 PASSED OUT/THINKS IT WAS FROM THE PAIN OF AN INJECTI Influenza Virus Vaccines Allergy Unknown TOLD NOT Verified 07/15/23 15:15 TO GET THE FLU/PNEUMONIA VACCINE pneumococcal vaccine Allergy Unknown TOLD NOT Verified 07/15/23 15:15 TO GET THE FLU/PNEUMONIA VACCINE Review of Systems Review of Systems ROS Unobtainable: All systems reviewed & are unremarkable except as noted in HPI and below Patient History Medical History Hyperlipidemia Parkinsons disease Alcohol type: wine Exam Narrative Exam Narrative: General: Patient appears to be in no acute distress, acting appropriately Head: normocephalic, atraumatic, HEENT: Pupils equal round reactive, eyes tracking well, neck supple, no JVD Heart: regular rate and rhythm, no murmurs, rubs, or gallops heard Lungs: clear to auscultation, no adventitious sounds Abdomen: soft , nontender, nondistended, positive bowel sounds Neurological: no focal neurological signs, decreased strength in lower ext Psych: good judgment ,good insight, mood is normal. Initial Vital Signs Initial Vital Signs: Vital Signs Temperature 97.7 F 04/30/25 11:02 Pulse Rate 84 04/30/25 11:02 Respiratory Rate 16 04/30/25 11:02 Blood Pressure 219/98 H 04/30/25 11:02 Pulse Oximetry 97 04/30/25 11:02 Oxygen Delivery Method Room Air 04/30/25 11:02 Course Course Course Narrative: Patient has a UTI picture in her UA. We will go ahead and treat the patient with Rocephin 1 g here and send the patient home with p.o. antibiotics. Await cultures and we will adjust medication if needed. Orders Ordered: ED Orders 04/30/25 11:15 Complete Blood Count AUTO DIFF Stat Comprehensive Metabolic Panel Stat Lipase Stat 04/30/25 11:26 Urinalysis and Microscopic Stat Urine Culture Stat Ondansetron HCl (Ondansetron 4 Mg/2 Ml Inj) 4 mg IV NOW PRN PRN Reason: Nausea And Vomiting Ondansetron HCl (Ondansetron 4 Mg Odt) 4 mg PO NOW PRN PRN Reason: Nausea And Vomiting Vital Signs Vital signs: Vital Signs - 8 hr 04/30/25 11:02 04/30/25 11:02 04/30/25 11:30 Temperature 97.7 F Pulse Rate 84 83 81 Respiratory Rate 16 Blood Pressure 219/98 H Pulse Oximetry 97 98 97 Oxygen Delivery Method Room Air MDM - Female Genitourinary Differential Diagnosis Differential diagnosis: Likely urinary tract infection, cervicitis and vaginitis Lab Data 04/30/25 11:15 04/30/25 11:15 Labs: Lab Results 04/30/25 04/30/25 Range/Units 11:15 11:26 WBC 5.5 (4.5-11.0) X10^3/uL RBC 3.72 L (4.0-5.2) X10^6/uL Hgb 12.8 (12.0-16.0) g/dL Hct 37.6 (36-46) % MCV 100.9 H (80-100) fL MCH 34.3 H (26-34) PG MCHC 34.0 (30-36) % RDW 13.4 (11.6-14.8) % Plt Count 231 (150-400) X10^3/uL Neut % (Auto) 72.6 (50-75) % Lymph % (Auto) 14.6 L (25-40) % Evans % (Auto) 10.1 (3-14) % Eos % (Auto) 1.9 L (2-4) % Baso % (Auto) 0.8 (0-2) % Neut # (Auto) 4000 (2290-6009) /uL Lymph # (Auto) 800 L (1932-7264) /uL Evans # (Auto) 600 (0-900) /uL Eos # (Auto) 100 (0-450) /uL Baso # (Auto) 0 (0-100) /uL Sodium 127 L (137-145) mmol/L Potassium 4.1 (3.4-5.1) mmol/L Chloride 92 L (98-107) mmol/L Carbon Dioxide 27 (22-32) mmol/L BUN 14 (7-17) mg/dL Creatinine 0.68 (0.52-1.04) mg/dL Estimated GFR > 60 (>60) mL/min BUN/Creatinine Ratio 20.6 (6-22) Glucose 115 H (70-99) mg/dL Calcium 9.1 (8.4-10.2) mg/dL Total Bilirubin 0.8 (0.2-1.3) mg/dL AST 31 (14-36) IU/L ALT 21 (<35) IU/L Alkaline Phosphatase 64 (38-126) U/L Total Protein 7.3 (6.3-8.2) g/dL Albumin 4.0 (3.5-5.0) g/dL Globulin 3.3 (1.7-4.1) g/dL Albumin/Globulin Ratio 1.2 (1.0-2.8) Lipase 80 (23-300) U/L Urine Color Yellow Urine Appearance Cloudy Urine pH 6.5 (4.5-8.0) Ur Specific Jenkins 1.020 (1.000-1.035) Urine Protein 1+ H (Negative) Urine Glucose (UA) Negative (Negative) g/dL Urine Ketones Trace H (NEGATIVE) Urine Occult Blood 3+ H (Negative) Urine Nitrate Negative (Negative) Urine Bilirubin Negative (NEGATIVE) Urine Urobilinogen 4.0 H (0.2) E.U./dL Ur Leukocyte Esterase 3+ H (NEGATIVE) Urine RBC 30-100/hpf H (0-5/HPF) Urine WBC 30-100/hpf H (0-5/HPF) Ur Squamous Epith Cells 0-1 /hpf (0-5/HPF) Urine Bacteria Many (>30) H (None) Ur Culture Indicated? Specimen cultured Vol Urine Centrifuged 10ml (spun) MDM Narrative Medical decision making narrative: Go ahead and treat the patient with Rocephin g IV here. Patient is otherwise asymptomatic. Send the patient home with some Macrobid to complete the course of antibiotics. Discharge Plan Departure Patient Disposition: Home Clinical Impression: UTI (urinary tract infection) Qualifiers: Urinary tract infection type: acute cystitis Hematuria presence: with hematuria Qualified Code(s): N30.01 - Acute cystitis with hematuria Instructions: DI for Urinary Tract Infection (UTI) Activity Restrictions/Additional Instructions: Take antibiotics as prescribed. Follow up if continually having blood in the urine for further intervention. Prescriptions: New cephalexin 500 mg capsule 500 mg PO Q12H Qty: 14 0RF No Action Simvastatin (Zocor) 40 mg PO HS Qty: 0 Diphenhydramine Hydrochloride (Benadryl) 25 OR Qty: 0 carbidopa-levodopa [Sinemet CR] 25 MG/100 MG tablet extended release 1 tab PO BID Qty: 0 hydrocodone-acetaminophen [[place]] 5 MG/325 MG tablet 1 tab PO Q4HP PRNQty: 15 0RF docusate sodium [Colace] 100 MG capsule 100 mg PO BID Qty: 20 0RF oxycodone-acetaminophen 5-325 mg tablet 0.5 - 1 tab PO Q6H PRN (Reason: pain) Qty: 10 0RF hydrocodone-acetaminophen 5-325 mg tablet 1 tab PO Q6H PRN (Reason: pain) Qty: 20 0RF Referrals: Nataliia Garcia MD [Primary Care Provider, Internal Medicine] Stand Alone Forms: Patient Portal/API
== END 2025-04-30 13:37 | disposition home or self-care (01) ==
PROVIDERS: Emergency Provider Family Medicine; Family Provider Internal Medicine; PCP Internal Medicine
DX: N30.01 Acute cystitis with hematuria (principal)
CPT/HCPCS: 36415; 51701; 80053; 81001; 83690; 85025; 87077; 87086; 87186; 96365; 99284; J0696